=== PATIENT | male | born 1980 ===

== ENCOUNTER 2022-01-15 23:25 | Emergency (ER) | payer OTHER, MEDICAID, SELFPAY ==
[2022-01-15 23:51] VITALS: BP 144/87; PULSE 65; RESP 18; TEMP 36.8; O2SAT 98; BMI 29.9
--- NOTE | 2022-01-16 00:26 | ED.SEIZURE ---
HPI - Seizure General Chief Complaint: Seizure Stated Complaint: seizure 12/15/21 foggy/trouble walking Time Seen by Provider: 01/15/22 23:50 Source: patient Mode of arrival: Ambulatory Limitations: no limitations History of Present Illness HPI Narrative: Patient is a 41-year-old male. Approximately 1 month ago he had a seizure. He was witnessed by family. Since that time he has been evaluated in the emergency department. Had a head CT. Has also been evaluated by Neurology. Patient states he had an EEG which he stated was normal. He is scheduled for a MRI in the coming weeks. He states that for the past week he has had issues of feeling very foggy in his head. It is difficult for him to describe more than this. It is not balance issue. It is not a weakness issue. He states that he feels unsafe walking around. No numbness and tingling. He was prescribed Keppra by the neurologist but has not taken this medication. Related Data Allergies Allergy/AdvReac Type Severity Reaction Status Date / Time No Known Drug Allergies Allergy Verified 01/15/22 23:51 Review of Systems Constitutional Constitutional: Denies fatigue, Denies frequent falls and Denies headache(s) ENT Ears, Nose, Mouth, and Throat: Denies headache(s) Cardiovascular Cardiovascular: Reports system reviewed and no additional complaints, except as documented Respiratory Respiratory: Reports system reviewed and no additional complaints, except as documented Gastrointestinal Gastrointestinal: Reports system reviewed and no additional complaints, except as documented Neurologic Neurologic: Reports system reviewed and no additional complaints, except as documented, Denies frequent falls and Denies headache(s) Endocrine Endocrine: Denies fatigue Hematologic/Lymphatic Hematologic/Lymphatic: Reports system reviewed and no additional complaints, except as documented Patient History Medical History Seizure Social History Smoking Status: Never smoker Smoking Status: Never smoker Substance Use Type: does not use Exam Initial Vital Signs Initial Vital Signs: Vital Signs Temperature 98.3 F 01/15/22 23:51 Pulse Rate 65 01/15/22 23:51 Respiratory Rate 18 01/15/22 23:51 Blood Pressure 144/87 H 01/15/22 23:51 Pulse Oximetry 98 01/15/22 23:51 HENW[place] Head: normal to inspection and normocephalic Resp Effort & Inspection: normal respiratory effort Auscultation: clear to auscultation bilaterally Cardio Rate: regular rate Rhythm: regular rhythm GI Inspection: normal to inspection Skin General: no rashes or lesions noted Neuro General: patient alert, patient awake and moves all extremities Cognition: normal cognition Speech: speech normal Gait: normal gait Extrem General: normal to inspection Psych Appearance: grossly normal Mood: anxious mood Course Orders Ordered: ED Orders 01/16/22 00:40 Basic Metabolic Panel Stat Complete Blood Count AUTO DIFF Stat Vital Signs Vital signs: Vital Signs - 8 hr 01/15/22 23:51 Temperature 98.3 F Pulse Rate 65 Respiratory Rate 18 Blood Pressure 144/87 H Pulse Oximetry 98 MDM - Seizure Lab Data Attestation: I reviewed the patient's lab results. Result diagrams: 01/16/22 00:40 01/16/22 00:40 Labs: Lab Results 01/16/22 01/16/22 Range/Units 00:40 00:40 WBC 5.2 (4.5-11.0) X10^3/uL RBC 5.38 (4.5-5.9) X10^6/uL Hgb 16.6 (13.5-17.5) g/dL Hct 48.0 (41-53) % MCV 89.3 (80-100) fL MCH 30.9 (26-34) PG MCHC 34.6 (30-36) % RDW 13.6 (11.6-14.8) % Plt Count 175 (150-400) X10^3/uL Neut % (Auto) 61.0 (50-75) % Lymph % (Auto) 26.1 (25-40) % [place] % (Auto) 10.7 (3-14) % Eos % (Auto) 1.5 L (2-4) % Baso % (Auto) 0.7 (0-2) % Neut # (Auto) 3200 (4105-9429) /uL Lymph # (Auto) 1400 (5835-8662) /uL [place] # (Auto) 600 (0-900) /uL Eos # (Auto) 100 (0-450) /uL Baso # (Auto) 0 (0-100) /uL Sodium 143 (137-145) mmol/L Potassium 4.5 (3.4-5.1) mmol/L Chloride 104 (98-107) mmol/L Carbon Dioxide 28 (22-32) mmol/L BUN 13 (9-20) mg/dL Creatinine 0.91 (0.66-1.25) mg/dL Estimated GFR > 60 (>60) mL/min BUN/Creatinine Ratio 14.3 (6-22) Glucose 79 (70-100) mg/dL Calcium 9.0 (8.4-10.2) mg/dL MDM Narrative Medical decision making narrative: Patient has very vague symptoms today. His electrolytes and blood counts today are unremarkable. He has a normal exam. I have low suspicion that when he presents with is seizure-like activity. I did inform him that if his neurologist recommends that he takes Keppra that that would be my recommendation as well. Told him to keep his appointment that is scheduled for an MRI in the next few weeks. He is instructed to contact his primary doctor for follow-up. Discharge Plan Departure Patient Disposition: Home Clinical Impression: General unsteadiness Activity Restrictions/Additional Instructions: I do recommend that you continue to taking all of your medications as directed and keep all of your scheduled medical appointments. Contact your primary doctor for a follow-up.
[2022-01-16 01:03] LABS: Add Manual Diff / Slide Review NO; Basophils Absolute Auto 0 /uL (0-100); Basophils Percent Auto 0.7 % (0-2); Eosinophils Absolute Auto 100 /uL (0-450); Eosinophils Percent Auto 1.5 % (2-4); Hemoglobin 16.6 g/dL (13.5-17.5); Lymphocytes Absolute Auto 1400 /uL (1100-4500); Lymphocytes Percent Auto 26.1 % (25-40); Mean Corpuscular HGB Conc 34.6 % (30-36); Mean Corpuscular Hemoglobin 30.9 PG (26-34); Mean Corpuscular Volume 89.3 fL (80-100); Monocytes Absolute Auto 600 /uL (0-900); Monocytes Percent Auto 10.7 % (3-14); Neutrophils Absolute Auto 3200 /uL (1500-7000); Platelet Count 175 X10^3/uL (150-400); Red Blood Cell Count 5.38 X10^6/uL (4.5-5.9); Red Cell Distribution Width 13.6 % (11.6-14.8); White Blood Cell Count 5.2 X10^3/uL (4.5-11.0)
[2022-01-16 01:29] LABS: BUN Creatinine Ratio 14.3 (6-22); Blood Urea Nitrogen 13 mg/dL (9-20); Carbon Dioxide 28 mmol/L (22-32); Chloride 104 mmol/L (98-107); Estimated Glomerular Filt Rate > 60 mL/min (>60); Glucose 79 mg/dL (70-100); HEMOLYSIS < 15 (0-50); Potassium 4.5 mmol/L (3.4-5.1); Sodium 143 mmol/L (137-145)
[2022-01-16 02:05] VITALS: BP 125/77; PULSE 50; RESP 17; O2SAT 98
== END 2022-01-16 01:49 | disposition home or self-care (01) ==
PROVIDERS: Emergency Provider Emergency Medicine
DX: R26.81 Unsteadiness on feet (principal)
CPT/HCPCS: 36415; 80048; 85025; 99281; 99282